=== PATIENT | female | born 1995 | race Caucasian/White ===

== ENCOUNTER 2020-06-12 02:34 | Emergency (ER) | payer OTHER ==
[~2020-06-12] VITALS: Ht 162.6 cm; Wt 54.4 kg
[2020-06-12 02:38] VITALS: BP_SYST 130
[2020-06-12] MEDS ORDERED: NACL 0.9% 1,000 ML IV ONE (02:50)
[2020-06-12] MEDS ORDERED: DIPHENHYDRAMINE INJ 50 MG/ML VIAL IVP ONE (03:00)
[2020-06-12] MEDS ORDERED: MORPHINE 4 MG/ML INJ. SYRINGE IVP ONE (03:00)
[2020-06-12] MEDS ORDERED: ONDANSETRON HCL 4 MG/2 ML VIAL IVP ONE (03:00)
[2020-06-12 04:03] LABS: BASOPHILS % (AUTO) 0.5 % (0.0-2.0); EOSINOPHILS # (AUTO) 0.1 K/uL (0.0-0.4); EOSINOPHILS % (AUTO) 0.9 % (0.0-4.0); HEMATOCRIT 39.5 % (36-48); HEMOGLOBIN 13.6 g/dL (12.0-16.0); LYMPHOCYTES # (AUTO) 1.7 K/uL (1.0-5.5); LYMPHOCYTES % (AUTO) 16.4 % (20.5-51.5); MEAN CORPUSCULAR HEMOGLOBIN 31 pg (27-31); MEAN CORPUSCULAR HGB CONC 34 % (32-36); MEAN CORPUSCULAR VOLUME 89 fL (79.0-98.0); MONOCYTES # (AUTO) 0.5 K/uL (0.0-1.0); MONOCYTES % (AUTO) 4.9 % (1.7-9.3); NEUTROPHILS # (AUTO) 8.1 K/uL (1.8-7.7); NEUTROPHILS % (AUTO) 77.3 % (40.0-70.0); PLATELET COUNT (AUTO) 307 K/uL (130-430); RED BLOOD CELL COUNT(AUTO) 4.44 MIL/uL (4.2-6.2); RED CELL DISTRIBUTION WIDTH 13.2 % (9.0-15.0); WHITE BLOOD COUNT (AUTO) 10.5 K/uL (4.8-10.8)
[2020-06-12 04:12] LABS: CALCIUM 9.9 mg/dL (8.4-11.0); CREATININE 0.95 mg/dL (0.55-1.30); POTASSIUM 3.7 mmol/L (3.5-5.1)
[2020-06-12 04:23] LABS: ALBUMIN 4.2 g/dL (3.4-4.8); TOTAL BILIRUBIN 0.5 mg/dL (0.0-1.0)
[2020-06-12] MEDS ORDERED: KETOROLAC TROMETHAMINE 30 MG VIAL IVP ONE (05:30)
[2020-06-12] MEDS ORDERED: PROCHLORPERAZINE EDISYLATE 10 MG/2 ML VIAL IVP ONE (05:30)
[2020-06-12 05:57] LABS: BILIRUBIN,URINE NEGATIVE (NEGATIVE); BLOOD, URINE 3+ (NEGATIVE); CLARITY/URINE SL CLOUDY (CLEAR); COLOR,URINE YELLOW (YELLOW); GLUCOSE,URINE NEGATIVE (NEGATIVE); KETONES,URINE 3+ (NEGATIVE); LEUKOCYTE ESTERASE ,URINE NEGATIVE (NEGATIVE); NITRITE, URINE NEGATIVE (NEGATIVE); PH,URINE 7.5 (5.0-8.0); PROTEIN URINE NEGATIVE (NEGATIVE); UROBILINOGEN,URINE 0.2 (0.2-1.0)
[2020-06-12 06:20] LABS: BACTERIA,URINE None Seen /HPF (None Seen); RBC,URINE NONE SEEN /HPF (0-3); WBC,URINE 80-100 /HPF (0-3)
[2020-06-12 06:21] LABS: TRICHOMONAS,URINE None Seen /HPF (None Seen); YEAST,URINE None Seen /HPF (None Seen)
[2020-06-12 06:22] VITALS: BP_SYST 111
== END 2020-06-12 06:22 | disposition home or self-care (01) ==
LOC: SED 02:34
DX: N20.1 Calculus of ureter (principal); R11.2 Nausea with vomiting, unspecified
CPT/HCPCS: 36415; 74176; 80053; 81000; 81025; 84702; 85025; 96361; 96374; 96375; 99284; J0780; J1200; J1885; J2270; J2405; J7030

== ENCOUNTER 2020-06-13 16:27 | Inpatient (IN) | payer OTHER, SELFPAY ==
[~2020-06-13] VITALS: Ht 162.6 cm; Wt 55.8 kg
[2020-06-13 16:28] VITALS: BP_SYST 131
--- NOTE | 2020-06-13 16:35 | NUR ---
Patient triaged and placed in waiting room. VSS and patient appears in no acute distress at this time. Accompanied by significant other, awaiting available bed, and MD notified of need for MSE.
--- NOTE | 2020-06-13 16:45 | NUR ---
DR. SIMMS AT THE BEDSIDE
[2020-06-13] MEDS ORDERED: PROPOFOL 200MG/ 20ML VIAL (DIPRIVAN) IV ONE (16:49)
[2020-06-13] MEDS ORDERED: KETOROLAC TROMETHAMINE 30 MG VIAL IVP ONE ×2 (16:49→17:00)
[2020-06-13] MEDS ORDERED: LIDOCAINE 1% 10 MG/ML, 20 ML MDV INJ ONE (16:49)
[2020-06-13] MEDS ORDERED: SEVOFLURANE 15 MIN GAS INH ONE (16:49)
[2020-06-13] MEDS ORDERED: DEXAMETHASONE SOD PHOSPHATE 4 MG/ML VIAL IVP ONE (16:49)
[2020-06-13] MEDS ORDERED: fentaNYL CITRATE/PF 100 MCG/2 ML AMP IVP ONE (16:49)
[2020-06-13] MEDS ORDERED: LR 1,000 ML IV.SOLN IV ONE (16:49)
[2020-06-13] MEDS ORDERED: NS IRRIG SOLN 1000 ML IR ONE (16:49)
[2020-06-13] MEDS ORDERED: ONDANSETRON HCL 4 MG/2 ML VIAL IVP ONE (16:49)
[2020-06-13] MEDS ORDERED: NS 1000 ML IV.SOLN IV ONE (16:49)
[2020-06-13] MEDS ORDERED: MIDAZOLAM HCL 5 MG/5 ML VIAL IVP ONE (16:49)
[2020-06-13] MEDS ORDERED: METOCLOPRAMIDE HCL 10 MG/2 ML VIAL IVP ONE (16:49)
[2020-06-13] MEDS ORDERED: GLYCOPYRROLATE 0.2 MG/ML VIAL IJ ONE (16:49)
--- NOTE | 2020-06-13 16:50 | NUR ---
I# 18 gauge angiocath placed to LAC. Use of asceptic technique. Opsite placed over site. Blood return noted. Blood for lab drawn from site. Flushed with 10 cc of normal saline. No evidence of infiltration noted. Patient tolerated well.
[2020-06-13] MEDS ORDERED: NACL 0.9% 1,000 ML IV ONE (16:59)
--- NOTE | 2020-06-13 16:59 | NUR ---
HERE FROM HOME WITH 10/10 ABD PAIN. REPORTS HAVING A 7MM KIDNEY STONE. AAOX4, V/S STABLE. WILL CONTINUE TO MONITOR FOR SAFETY.
[2020-06-13] MEDS ORDERED: MORPHINE 4 MG/ML INJ. SYRINGE IVP ONE (17:00)
--- NOTE | 2020-06-13 17:05 | NUR ---
MEDICATED FOR PAIN PER ORDER, TOLERATED WELL
[2020-06-13 17:10] LABS: BASOPHILS # (AUTO) 0.1 K/uL (0.0-0.2); BASOPHILS % (AUTO) 0.6 % (0.0-2.0); EOSINOPHILS # (AUTO) 0.1 K/uL (0.0-0.4); EOSINOPHILS % (AUTO) 0.5 % (0.0-4.0); HEMATOCRIT 37.8 % (36-48); HEMOGLOBIN 12.9 g/dL (12.0-16.0); LYMPHOCYTES # (AUTO) 1.4 K/uL (1.0-5.5); LYMPHOCYTES % (AUTO) 12.2 % (20.5-51.5); MEAN CORPUSCULAR HEMOGLOBIN 31 pg (27-31); MEAN CORPUSCULAR HGB CONC 34 % (32-36); MEAN CORPUSCULAR VOLUME 90 fL (79.0-98.0); MONOCYTES # (AUTO) 0.7 K/uL (0.0-1.0); MONOCYTES % (AUTO) 5.9 % (1.7-9.3); NEUTROPHILS # (AUTO) 9.2 K/uL (1.8-7.7); NEUTROPHILS % (AUTO) 80.8 % (40.0-70.0); PLATELET COUNT (AUTO) 287 K/uL (130-430); RED BLOOD CELL COUNT(AUTO) 4.23 MIL/uL (4.2-6.2); RED CELL DISTRIBUTION WIDTH 13.1 % (9.0-15.0); WHITE BLOOD COUNT (AUTO) 11.3 K/uL (4.8-10.8)
--- NOTE | 2020-06-13 17:19 | NUR ---
Patient transported to radiology via , accompanied by FLOATLIGHT LOADING SUPERVISOR.
--- NOTE | 2020-06-13 17:28 | NUR ---
Received admiting orders from Dr. Estrada. Called for a bed, Flor will call back.
--- NOTE | 2020-06-13 17:30 | NUR ---
Patient is back from CT, in stable condition.
[2020-06-13 17:33] LABS: CALCIUM 9.2 mg/dL (8.4-11.0); CREATININE 1.13 mg/dL (0.55-1.30); POTASSIUM 3.7 mmol/L (3.5-5.1)
[2020-06-13] MEDS ORDERED: KETAMINE 30 MG/3 ML SYRINGE 30 MG in NS 100 ML IV ONE (17:45)
[2020-06-13 17:51] LABS: BILIRUBIN,URINE 2+ (NEGATIVE); BLOOD, URINE 2+ (NEGATIVE); CLARITY/URINE CLOUDY (CLEAR); COLOR,URINE YELLOW (YELLOW); GLUCOSE,URINE NEGATIVE (NEGATIVE); KETONES,URINE 1+ (NEGATIVE); LEUKOCYTE ESTERASE ,URINE 3+ (NEGATIVE); NITRITE, URINE NEGATIVE (NEGATIVE); PROTEIN URINE 2+ (NEGATIVE)
[2020-06-13] MEDS: D5/0.45 NS 1,000 ML IV SCH ×2 (17:51→23:53)
--- NOTE | 2020-06-13 18:00 | NUR ---
Patient will be admitted to care of DR. ORO. Admitted to MEDSURG unit. Will go to room 110. Belongings list completed. Complete and up to date summary report printed. SBAR report to be given at bedside with opportunity for questions. IV FLUIDS RUNNING, IV PATENT, PATIENT TOLERATING WELL.
[2020-06-13] MEDS ORDERED: KETAMINE 30 MG/3 ML SYRINGE ONE (18:01)
[2020-06-13] MEDS ORDERED: NALOXONE HCL 0.4 MG/ML AMP (NARCAN) IVP PRN ×3 (18:15)
[2020-06-13] MEDS ORDERED: TAMSULOSIN HCL 0.4 MG CAP PO ONE (18:15)
[2020-06-13] MEDS ORDERED: ACETAMINOPHEN 325 MG TABLET PO PRN (18:15)
[2020-06-13] MEDS ORDERED: LORazepam 2 MG/ML VIAL IVP PRN (18:15)
[2020-06-13 18:40] LABS: BACTERIA,URINE MODERATE /HPF (None Seen); WBC,URINE 50-80 /HPF (0-3)
[2020-06-13 18:41] LABS: HYALINE CASTS, URINE 0-10 /LPF (None Seen); MUCUS,URINE 2+ /LPF (None Seen)
[2020-06-13 18:43] LABS: TOTAL BILIRUBIN 0.6 mg/dL (0.0-1.0)
[2020-06-13 18:44] LABS: ALBUMIN 3.9 g/dL (3.4-4.8)
[2020-06-13] MEDS: ONDANSETRON HCL 4 MG/2 ML VIAL IVP PRN ×2 (18:54→21:00)
[2020-06-13 18:55] VITALS: BP_SYST 137
[2020-06-13] MEDS: MORPHINE 2 MG/ML INJ. SYRINGE IVP PRN ×2 (18:58→23:53)
--- NOTE | 2020-06-13 18:58 | NUR ---
PAGED FOR CONSULT DR. NAVARRO REASON FOR CONSULT: UTI ORDERED BY: - DIALED: [phone] SPOKE TO: ELMO
[2020-06-13] MEDS ORDERED: traZODone HCL 50 MG TABLET (DESYREL) PO PRN (19:00)
--- NOTE | 2020-06-13 19:05 | NUR ---
Admission notes, received pt from e.r c/o hernandez ramos. pt came under dr adams for diagnosis of Kidney stone. Situated pt in bed, upon arrival. pt medicated with zofran, flomax and morphine. pt urinated 300 cc of urine, strained urine. no stones seen. will endorse pt to night rn.
--- NOTE | 2020-06-13 19:26 | NUR ---
Pt endorsed to night hernandez Baker and jarod Everett.
[2020-06-13 19:30] VITALS: BP_SYST 137
--- NOTE | 2020-06-13 20:00 | NUR ---
ADMISSION: The patient, ANGIE THOMAS, 25 y/o, F admitted by NIDIA ORO MD, was given written information regarding hospital policies, unit procedures and contact persons. Valuables were checked and PROCEDURES EXPLAINED patient awake also alert assist to Rest Room as needed no SOB tolerated .
[2020-06-13 20:27] VITALS: BP_SYST 135
[2020-06-13] MEDS: CIPROFLOXACIN LACT 200 MG/D5W 100 ML IV SCH (21:00)
[2020-06-13] MEDS: HYDROcodone/ACETAMIN 10-325 MG TAB PO PRN (21:01)
--- NOTE | 2020-06-13 22:31 | NUR ---
STRAINING URINE patient ambulates to Rest Room as needed , no signs of stones .
--- NOTE | 2020-06-13 22:32 | NUR ---
NORCO 10 / 325 MG PO GIVEN FOR PAIN & HELPFUL .
--- NOTE | 2020-06-14 03:16 | NUR ---
MORPHINE 2 MG IVP GIVEN FOR ACUTE PAIN & HELPFUL .
--- NOTE | 2020-06-14 03:16 | NUR ---
ATIVAN 1 MG IVP GIVEN FOR AGITATION & HELPFUL .
--- NOTE | 2020-06-14 05:18 | NUR ---
ASSIST PATIENT out of bed ambulates to Rest Room no SOB skin dry warm STRAINING URINE no stones noted continue to monitor .
[2020-06-14 06:39] LABS: BASOPHILS % (AUTO) 0.4 % (0.0-2.0); EOSINOPHILS % (AUTO) 0.2 % (0.0-4.0); HEMATOCRIT 41.5 % (36-48); HEMOGLOBIN 14.1 g/dL (12.0-16.0); LYMPHOCYTES # (AUTO) 1.4 K/uL (1.0-5.5); LYMPHOCYTES % (AUTO) 15.9 % (20.5-51.5); MEAN CORPUSCULAR HEMOGLOBIN 31 pg (27-31); MEAN CORPUSCULAR HGB CONC 34 % (32-36); MEAN CORPUSCULAR VOLUME 90 fL (79.0-98.0); MONOCYTES # (AUTO) 0.7 K/uL (0.0-1.0); MONOCYTES % (AUTO) 7.8 % (1.7-9.3); NEUTROPHILS # (AUTO) 6.5 K/uL (1.8-7.7); NEUTROPHILS % (AUTO) 75.7 % (40.0-70.0); PLATELET COUNT (AUTO) 251 K/uL (130-430); RED BLOOD CELL COUNT(AUTO) 4.61 MIL/uL (4.2-6.2); RED CELL DISTRIBUTION WIDTH 13.1 % (9.0-15.0); WHITE BLOOD COUNT (AUTO) 8.6 K/uL (4.8-10.8)
[2020-06-14 06:56] LABS: ALBUMIN 3.5 g/dL (3.4-4.8); CALCIUM 8.8 mg/dL (8.4-11.0); CREATININE 1.1 mg/dL (0.55-1.30); PHOSPHORUS 4.5 mg/dL (2.7-4.5); POTASSIUM 3.6 mmol/L (3.5-5.1); TOTAL BILIRUBIN 0.8 mg/dL (0.0-1.0)
[2020-06-14] MEDS: MORPHINE 2 MG/ML INJ. SYRINGE IVP PRN (10:20)
[2020-06-14] MEDS: CIPROFLOXACIN LACT 200 MG/D5W 100 ML IV SCH (11:10)
[2020-06-14] MEDS: TAMSULOSIN HCL 0.4 MG CAP PO SCH (11:11)
[2020-06-14 11:19] VITALS: BP_SYST 170
[2020-06-14 11:31] VITALS: BP_SYST 115
[2020-06-14] MEDS: D5/0.45 NS 1,000 ML IV SCH (13:30)
[2020-06-14] MEDS: HYDROcodone/ACETAMIN 10-325 MG TAB PO PRN ×2 (14:47→16:17)
[2020-06-14] MEDS: AZTREONAM 1 GM in NS 50 ML IV SCH ×2 (14:55→22:29)
[2020-06-14 19:48] VITALS: BP_SYST 123
[2020-06-14] MEDS: HYDROcodone/ACETAMIN 5-325 MG TAB (NORCO/ VICODIN) PO PRN (19:53)
--- NOTE | 2020-06-14 19:53 | NUR ---
PAIN MGT PATIENT MEDICATED WITH NORCO FOR C/O RT LOWER BACK PAIN 01/27. VITAL SIGNS STABLE.
--- NOTE | 2020-06-14 20:15 | NUR ---
MD DR. AGUILLON MAKING ROUNDS INFORMED PATIENT AND STAFF PATIENT FOR SURGERY TOMORROW AFTERNOON. RT URETEROSCOPY/LASER LITHOTRIPSY/STENT.
--- NOTE | 2020-06-14 22:29 | NUR ---
ATB PATIENT DUE ANTIBIOTIC INFUSED. IV LINE INTACT AND PATENT.
[2020-06-15] VITALS: BP_SYST 113
[2020-06-15] MEDS: HYDROcodone/ACETAMIN 5-325 MG TAB (NORCO/ VICODIN) PO PRN ×2 (01:06→06:53)
--- NOTE | 2020-06-15 01:06 | NUR ---
PAIN MGT PATIENT MEDICATED WITH NORCO FOR C/O RT LOWER BACK/HIP PAIN 01/27. VITAL SIGNS STABLE.
[2020-06-15] MEDS: D5/0.45 NS 1,000 ML IV SCH ×3 (01:08→22:28)
--- NOTE | 2020-06-15 03:45 | NUR ---
ROUNDS PATIENT RESTING IN BED AWAKE. NO DISTRESS NOTED. NO C/O PAIN.
[2020-06-15] MEDS: AZTREONAM 1 GM in NS 50 ML IV SCH ×3 (06:11→22:27)
--- NOTE | 2020-06-15 06:41 | NUR ---
CLOSING NOTES PATIENT NEEDS ATTENDED. IVF INFUSING WITH IV LINE INTACT AND PATENT. PATIENT AWARE NPO AFTER 8AM FOR SCHEDULED PROCEDURE THIS AFTERNOON.
[2020-06-15 06:49] LABS: BASOPHILS % (AUTO) 0.7 % (0.0-2.0); EOSINOPHILS # (AUTO) 0.2 K/uL (0.0-0.4); EOSINOPHILS % (AUTO) 3.5 % (0.0-4.0); HEMATOCRIT 35.5 % (36-48); HEMOGLOBIN 12.3 g/dL (12.0-16.0); LYMPHOCYTES % (AUTO) 41.7 % (20.5-51.5); MEAN CORPUSCULAR HEMOGLOBIN 31 pg (27-31); MEAN CORPUSCULAR HGB CONC 35 % (32-36); MEAN CORPUSCULAR VOLUME 90 fL (79.0-98.0); MONOCYTES # (AUTO) 0.4 K/uL (0.0-1.0); MONOCYTES % (AUTO) 8.2 % (1.7-9.3); NEUTROPHILS # (AUTO) 2.2 K/uL (1.8-7.7); NEUTROPHILS % (AUTO) 45.9 % (40.0-70.0); PLATELET COUNT (AUTO) 206 K/uL (130-430); RED BLOOD CELL COUNT(AUTO) 3.96 MIL/uL (4.2-6.2); RED CELL DISTRIBUTION WIDTH 12.9 % (9.0-15.0); WHITE BLOOD COUNT (AUTO) 4.9 K/uL (4.8-10.8)
[2020-06-15 07:04] LABS: C-REACTIVE PROTEIN QUANT 3.4 mg/dL (0-0.5); CALCIUM 8.5 mg/dL (8.4-11.0); CREATININE 0.76 mg/dL (0.55-1.30); POTASSIUM 3.3 mmol/L (3.5-5.1)
[2020-06-15 07:09] LABS: PROTHROMBIN TIME 10.4 SECS (9.5-12.5)
[2020-06-15 08:58] LABS: ERYTHROCYTE SEDIMENTATION RATE 5 MM/HR (0-20)
--- NOTE | 2020-06-15 09:02 | NUR ---
Nutrition Update [place] Scale 14 noted. Pt admitted for kidney stone Diet: regular BMI: 21.1 kg/m2 RD to follow per nutrition care standards.
[2020-06-15] MEDS: HYDROcodone/ACETAMIN 10-325 MG TAB PO PRN (11:59)
[2020-06-15] MEDS: TAMSULOSIN HCL 0.4 MG CAP PO SCH (12:20)
[2020-06-15 12:38] VITALS: BP_SYST 117
[2020-06-15] MEDS: MORPHINE 2 MG/ML INJ. SYRINGE IVP PRN (15:51)
[2020-06-15 16:42] VITALS: BP_SYST 118
[2020-06-15] MEDS ORDERED: IOHEXOL 0 ML IV ONE (16:44)
[2020-06-15] MEDS ORDERED: IOHEXOL 50 ML IV ONE (17:27)
[2020-06-15] MEDS ORDERED: POTASSIUM CHLORIDE 20 MEQ TAB.PRT.SR PO ONE (18:15)
[2020-06-15] MEDS ORDERED: LR 1,000 ML IV SCH (18:18)
[2020-06-15] MEDS ORDERED: ONDANSETRON HCL 4 MG/2 ML VIAL IVP PRN (18:30)
[2020-06-15] MEDS ORDERED: KETOROLAC TROMETHAMINE 30 MG VIAL IVP PRN ×3 (18:30)
[2020-06-15] MEDS ORDERED: HYDROmorphone 1 MG INJ. 1 MG/ML AMPUL IVP PRN ×2 (18:30)
[2020-06-15 18:51] VITALS: BP_SYST 112
--- NOTE | 2020-06-15 19:15 | NUR ---
NURSE NOTES Received report from night nurse and assume care of patient until 1929. NPO after MN for liptotripsy. IV D5 1/2NS at 100 ml/hr. IVPB Azactam 1 gm given. [place]wall 10 given x 1 PO with sips of water and then had Morphine 2 mg IVP at 1551 x 1 with relief. VSS. afeb. Consent signed and checklist done prior to procedure. Returned about 1909- [id number], BP 136/77 O2 sat 94% RA. Pain 0/10..-
--- NOTE | 2020-06-15 19:30 | NUR ---
Opening note received patient, awake, resting in bed, no distress and denies pain. VSS. She arrived from OR, will connect her to IVF and set up frequent v/s. reviewed plan of care.
--- NOTE | 2020-06-15 19:30 | NUR ---
ROUNDINGS; REPORT GIVEN TO NIGHT NURSE EVA TO ASSUME CARE OF PATIENT. NPO FOR LIPTOTRIPSY. C/O PAIN DURING DAYTIME AND GIVEN NORCO 10 X 1 AT 1159 WITH SIP OF WATER AND MORPHINE 2 MG IV AT 1551, WITH RELIEF. PUMPING BREASTS SINCE . ON IVPB ATB. SBAR GIVEN TO NIGHT NURSE. STABLE CONDITION.
[2020-06-15 20:00] VITALS: BP_SYST 128
--- NOTE | 2020-06-15 22:30 | NUR ---
antibiotic Due antibiotic given, Hung IVF D51/2 NS. Patient ambulated to restroom and voided 800 ml of blood tinged urine in hat. She will pump breast milk; she is nursing baby at home. No further needs.
[2020-06-16] MEDS: HYDROcodone/ACETAMIN 5-325 MG TAB (NORCO/ VICODIN) PO PRN ×2 (02:31→06:44)
--- NOTE | 2020-06-16 02:39 | NUR ---
Pain med Patient reporting moderate pain, 4/10 to abdomen-bladder and requesting med. She was given [place] 5-325 and educated on side effects and she verbalized understanding. She just voided and reports that activity caused pain. She also requested ice water and tai crackers which were provided.
[2020-06-16] MEDS: AZTREONAM 1 GM in NS 50 ML IV SCH ×2 (06:40→13:57)
[2020-06-16] MEDS: D5/0.45 NS 1,000 ML IV SCH (06:41)
--- NOTE | 2020-06-16 06:45 | NUR ---
meds Due antibiotic hung and infusing well. Hung new bag of IVF - D51/2NS and infusing as ordered. Patient reporting moderate pain and given norco 5-325 for pain.
[2020-06-16 07:17] LABS: BASOPHILS % (AUTO) 0.5 % (0.0-2.0); EOSINOPHILS % (AUTO) 0.5 % (0.0-4.0); HEMATOCRIT 37.9 % (36-48); HEMOGLOBIN 13.2 g/dL (12.0-16.0); LYMPHOCYTES # (AUTO) 1.8 K/uL (1.0-5.5); LYMPHOCYTES % (AUTO) 26.6 % (20.5-51.5); MEAN CORPUSCULAR HEMOGLOBIN 31 pg (27-31); MEAN CORPUSCULAR HGB CONC 35 % (32-36); MEAN CORPUSCULAR VOLUME 89 fL (79.0-98.0); MONOCYTES # (AUTO) 0.4 K/uL (0.0-1.0); MONOCYTES % (AUTO) 6.5 % (1.7-9.3); NEUTROPHILS # (AUTO) 4.6 K/uL (1.8-7.7); NEUTROPHILS % (AUTO) 65.9 % (40.0-70.0); PLATELET COUNT (AUTO) 279 K/uL (130-430); RED BLOOD CELL COUNT(AUTO) 4.29 MIL/uL (4.2-6.2); RED CELL DISTRIBUTION WIDTH 13.1 % (9.0-15.0); WHITE BLOOD COUNT (AUTO) 6.9 K/uL (4.8-10.8)
[2020-06-16 07:26] LABS: C-REACTIVE PROTEIN QUANT 2.2 mg/dL (0-0.5); CALCIUM 9.1 mg/dL (8.4-11.0); CREATININE 0.76 mg/dL (0.55-1.30); POTASSIUM 3.9 mmol/L (3.5-5.1)
--- NOTE | 2020-06-16 07:40 | NUR ---
closing note endorsed report, patient stable
[2020-06-16 08:00] VITALS: BP_SYST 114
--- NOTE | 2020-06-16 08:00 | NUR ---
initial notes rec patient awake alert with ivl on the l ac i ntact. no infiltration noted. resp easy and unlabored. no osb noted. bed to th e lowest position and side rail up and locked. call light within reached. will continue to monitor patient.
[2020-06-16 08:15] LABS: ERYTHROCYTE SEDIMENTATION RATE 6 MM/HR (0-20)
--- NOTE | 2020-06-16 11:00 | NUR ---
rounds due meds given and haydee well. pt wanting to go home. dr bryan adams was called and awaiting to come and release patient.
[2020-06-16] MEDS: TAMSULOSIN HCL 0.4 MG CAP PO SCH (11:09)
[2020-06-16] MEDS: HYDROcodone/ACETAMIN 10-325 MG TAB PO PRN (11:09)
--- NOTE | 2020-06-16 15:00 | NUR ---
rounds seen by dr middleton and stated that pt is clear to go home. no sob noted.
--- NOTE | 2020-06-16 15:30 | NUR ---
rounds dr adams came and d/c patient.
[2020-06-16 16:00] VITALS: BP_SYST 120
[2020-06-16 16:02] VITALS: BP_SYST 120
--- NOTE | 2020-06-16 16:15 | NUR ---
closing notes pt was discharged via wheelchair. ivl and id band was removed.instructed re appt with pmd, with dr middleton urologist and dr quiñonez. no med rec . no sob noted. needs med and pt stable. was here to picker patient.
== END 2020-06-16 16:15 | disposition home or self-care (01) | DRG 660 ==
LOC: SED 16:27 → SMU 17:30
PROVIDERS: ADMIT Preventive Medicine Preventive Medicine/Occupational Environmental Medicine; ATTEND Preventive Medicine Preventive Medicine/Occupational Environmental Medicine
PROC: 0T768DZ Dilation of Right Ureter with Intraluminal Device, Via Natural or Artificial Opening Endoscopic (ICD-10-PCS; 2020-06-15)
PROC: BT1D1ZZ Fluoroscopy of Right Kidney, Ureter and Bladder using Low Osmolar Contrast (ICD-10-PCS; 2020-06-15)
PROC: 0TC68ZZ Extirpation of Matter from Right Ureter, Via Natural or Artificial Opening Endoscopic (ICD-10-PCS; principal; 2020-06-15 14:15)
DX: N13.6 Pyonephrosis (principal); N20.2 Calculus of kidney with calculus of ureter; E87.6 Hypokalemia; Z20.828 Contact with and (suspected) exposure to other viral communicable diseases; R73.9 Hyperglycemia, unspecified; Z87.442 Personal history of urinary calculi; Z88.0 Allergy status to penicillin; Z88.1 Allergy status to other antibiotic agents
CPT/HCPCS: 36415; 74018; 76000; 80048; 80053; 81000-TC; 82360; 83735-TC; 84100-TC; 84703; 85025; 85610-TC; 85651-TC; 85730-TC; 86140; 87040-TC; 87081; 87086; 88300; 94010; 96361; 96374; 96375; 99285; C1769; C2625; J0744; J1100; J1885; J2001; J2060; J2250; J2270; J2405; J2704; J2765; J3010; J3490; J7030; J7120; Q9967